=== PATIENT | female | born 1985 | race American Indian/Alaskan Native ===

== ENCOUNTER 2016-06-07 19:19 | Emergency (ER) | payer SELFPAY ==
[2016-06-07] MEDS ORDERED: TYLENOL ONE (19:31)
[2016-06-07] MEDS ORDERED: TYLENOL PO ONE (20:55)
[2016-06-08 00:52] LABS: Hematocrit 30.4 % (30.3-42.9); Hemoglobin 9.2 gm/dl (10.1-14.3); Mean Corpuscular HGB Conc 30 % (30-34); Platelet Count 264 K/mm3 (140-440); Red Blood Count 4.57 M/mm3 (3.65-5.03); White Blood Count 4.9 K/mm3 (4.5-11.0)
[2016-06-08 00:53] LABS: Mean Corpuscular Hemoglobin 20 pg (28-32); Mean Corpuscular Volume 66 fl (79-97); Red Cell Distribution Width 20.7 % (13.2-15.2)
[2016-06-08 01:11] LABS: Anion Gap 17 mmol/L; BUN/Creatinine Ratio 13.33; Blood Urea Nitrogen 12 mg/dL (7-17); Calcium 8.8 mg/dL (8.4-10.2); Carbon Dioxide 26 mmol/L (22-30); Chloride 97.1 mmol/L (98-107); Glucose 114 mg/dL (65-100); Potassium 3.1 mmol/L (3.6-5.0); Sodium 137 mmol/L (137-145)
[2016-06-08] MEDS ORDERED: MOTRIN PO ONE (01:18)
[2016-06-08] MEDS ORDERED: ZITHROMAX PO ONE (01:18)
[2016-06-08] MEDS ORDERED: DUONEB 0.5 MG-3 MG/3 ML SOLN IH ONE (01:19)
[2016-06-08] MEDS ORDERED: K-DUR PO ONE (01:23)
--- NOTE | 2016-06-08 01:23 | Emergency Department Report ---
- General Chief Complaint: Upper Respiratory Infection Stated Complaint: FLU SX/ BODY PAIN Time Seen by Provider: 06/08/16 01:17 Source: patient Mode of arrival: Ambulatory Limitations: No Limitations - History of Present Illness Initial Comments: 30-year-old female has medical history obesity presents with 2-3 days of fevers chills productive cough dark greenish yellow sputum. Patient states she has had muscle cramps and body aches for the last 2 days intermittently. He shouldn 't is awake alert and oriented 3 does not appear to be in severe distress states she feels feverish and has been coughing with productive. MD Complaint: fever, cough Onset/Timin -: days(s) Severity: moderate Context: sick contacts Associated Symptoms: fever, chills, myalgias, cough - Related Data Previous Rx's Medication Instructions Recorded Last Taken Type ALBUTEROL Inhaler [ProAir HFA 1 puff IH Q4H PRN #1 inha 06/08/16 Unknown Rx Inhaler] Azithromycin [Zithromax TAB] 250 mg PO QDAY #4 tablet 06/08/16 Unknown Rx Ibuprofen [Motrin] 600 mg PO Q8H PRN #25 tablet 06/08/16 Unknown Rx Magnesium Oxide [Mag-Ox] 400 mg PO QDAY #15 tablet 06/08/16 Unknown Rx Phenylephrine/Dm/Acetaminop/GG 10 ml PO Q6H PRN #1 bottle 06/08/16 Unknown Rx [Mucinex Xdya-Zci-Qjlaazbmbp Lq] Potassium Chloride [K-Dur] 20 meq PO BID #30 tab 06/08/16 Unknown Rx Allergies Allergy/AdvReac Type Severity Reaction Status Date / Time No Known Allergies Allergy Verified 06/07/16 20:51 ED Review of Systems ROS: Stated complaint: FLU SX/ BODY PAIN Other details as noted in HPI Constitutional: fever, malaise. denies: chills Eyes: denies: eye pain, eye discharge, vision change ENT: denies: ear pain, throat pain Respiratory: cough. denies: shortness of breath, wheezing Cardiovascular: denies: chest pain, palpitations Endocrine: no symptoms reported Gastrointestinal: denies: abdominal pain, nausea, diarrhea Genitourinary: denies: urgency, dysuria, discharge Musculoskeletal: denies: back pain, joint swelling, arthralgia Skin: denies: rash, lesions Neurological: denies: headache, weakness, paresthesias Psychiatric: denies: anxiety, depression Hematological/Lymphatic: denies: easy bleeding, easy bruising ED Past Medical Hx - Past Medical History Previous Medical History?: No - Surgical History Past Surgical History?: No - Social History Smoking Status: Never Smoker Substance Use Type: None - Medications Home Medications: Home Medications Medication Instructions Recorded Confirmed Last Taken Type ALBUTEROL Inhaler [ProAir HFA 1 puff IH Q4H PRN #1 inha 06/08/16 Unknown Rx Inhaler] Azithromycin [Zithromax TAB] 250 mg PO QDAY #4 tablet 06/08/16 Unknown Rx Ibuprofen [Motrin] 600 mg PO Q8H PRN #25 tablet 06/08/16 Unknown Rx Magnesium Oxide [Mag-Ox] 400 mg PO QDAY #15 tablet 06/08/16 Unknown Rx Phenylephrine/Dm/Acetaminop/GG 10 ml PO Q6H PRN #1 bottle 06/08/16 Unknown Rx [Mucinex Rfom-Zph-Ngyaybbzed Lq] Potassium Chloride [K-Dur] 20 meq PO BID #30 tab 06/08/16 Unknown Rx ED Physical Exam - General Limitations: No Limitations General appearance: alert, in no apparent distress - Head Head exam: Present: atraumatic, normocephalic - Eye Eye exam: Present: normal appearance, PERRL, EOMI - ENT ENT exam: Present: mucous membranes moist - Neck Neck exam: Present: normal inspection, full ROM - Respiratory Respiratory exam: Present: respiratory distress, decreased breath sounds - Cardiovascular Cardiovascular Exam: Present: regular rate, normal rhythm. Absent: systolic murmur, diastolic murmur, rubs, gallop - GI/Abdominal GI/Abdominal exam: Present: soft, normal bowel sounds - Extremities Exam Extremities exam: Present: normal inspection, full ROM - Back Exam Back exam: Present: normal inspection - Neurological Exam Neurological exam: Present: alert, oriented X3 - Psychiatric Psychiatric exam: Present: normal affect, normal mood - Skin Skin exam: Present: warm, dry, intact, normal color. Absent: rash ED Course Vital Signs 06/07/16 06/08/16 19:40 00:19 Temperature 101.5 F H 98.8 F Pulse Rate 108 H 75 Respiratory 18 14 Rate Blood Pressure 102/65 Blood Pressure 155/103 [Right] O2 Sat by Pulse 99 100 Oximetry ED Medical Decision Making - Lab Data Result diagrams: 06/08/16 00:38 06/08/16 00:38 - Medical Decision Making A/P: Viral syndrome, hypokalemia, acute bronchitis 1-patient is mildly anemic, states she has had iron deficiency anemia for some time and takes iron supplementation. I will refer her to follow up with primary care doctor. We'll also provide by mouth potassium and magnesium supplementation. Patient is currently on her period which she states is normal in volume and symptoms of blood loss. Patient denies any chest pain or palpitations. Hemoglobin is at 9.4 not low enough for transfusion 2-flu swab negative 3-empiric treatment with azithromycin as patient has productive cough with fever and chills 4-Motrin, Mucinex when necessary albuterol inhaler 5- I advised patient to return to the ED if her symptoms worsen despite use of medications, for any nausea vomiting worsened fever or chills any significant shortness of breath Critical care attestation.: If time is entered above; I have spent that time in minutes in the direct care of this critically ill patient, excluding procedure time. ED Disposition Clinical Impression: Hypokalemia Acute bronchitis Qualifiers: Bronchitis organism: unspecified organism Qualified Code(s): J20.9 - Acute bronchitis, unspecified Disposition: DISCHARGED TO HOME OR SELFCARE Is pt being admited?: No Does the pt Need Aspirin: No Condition: Stable Instructions: Hypokalemia (ED), Acute Bronchitis (ED) Prescriptions: ALBUTEROL Inhaler [ProAir HFA Inhaler] 1 puff IH Q4H PRN #1 inha PRN Reason: Wheezing Azithromycin [Zithromax TAB] 250 mg PO QDAY #4 tablet Ibuprofen [Motrin] 600 mg PO Q8H PRN #25 tablet PRN Reason: Fever Magnesium Oxide [Mag-Ox] 400 mg PO QDAY #15 tablet Phenylephrine/Dm/Acetaminop/GG [Mucinex Lxvn-Nny-Hqxjnkraxb Lq] 10 ml PO Q6H PRN #1 bottle PRN Reason: Cough Potassium Chloride [K-Dur] 20 meq PO BID #30 tab Referrals: NADIA COTA MD [Staff Physician] - 3-5 Days [facility] [Outside] - 3-5 Days [facility] [Outside] - 3-5 Days Forms: Accompanied Note, Work/School Release Form(ED) Time of Disposition: 03:18
[2016-06-08] MEDS ORDERED: MAG-OX PO ONE (01:24)
[2016-06-08 03:03] LABS: Anisocytosis 1+; Basophils % (Manual) 0 % (0.0-1.8); Blastocytes % (Manual) 0 %; Eosinophils % (Manual) 0 % (0.0-4.3); Hypochromasia 2+; Microcytosis 1+
[2016-06-08 03:04] LABS: Diff Status Complete; Platelet Estimate Consistent w Auto
[2016-06-08 03:42] VITALS: BP 104/67
--- NOTE | 2016-06-08 07:46 | XRay Report ---
CHEST 2 VIEWS INDICATION: Worsening cough. COMPARISON: None similar. FINDINGS: PA and lateral chest radiographs demonstrate normal cardiomediastinal silhouette. Clear lungs. Mild thoracic spine degenerative changes, advanced for the patient's age. Small focal eventration of the right hemidiaphragm anteriorly. CONCLUSION: No acute disease in the chest, as described. Thank you for the opportunity to participate in this patient's care.
== END 2016-06-08 03:43 | disposition home or self-care (01) ==
LOC: ED 19:19
DX: J20.9 Acute bronchitis, unspecified (principal); E87.6 Hypokalemia
CPT/HCPCS: 36415; 71020; 80048; 84703; 85007; 85025; 87400; 93005; 93010; 99284

== ENCOUNTER 2019-02-20 | Emergency (ER) | payer SELFPAY ==
[2019-02-20 00:09] VITALS: BP 178/95
[2019-02-20 00:53] LABS: Bilirubin,Urine NEG (Negative); Blood,Urine LG (Negative); Color,Urine Yellow (Yellow); Mucus,Urine FEW /HPF; Protein,Urine <15 mg/dL mg/dL (Negative); Urobilinogen,Urine < 2.0 mg/dL (<2.0); WBC,Urine < 1.0 /HPF (0.0-6.0)
[2019-02-20 00:58] LABS: Basophils % (Auto) 0.3 % (0.0-1.8); Eosinophils # (Auto) 0.1 K/mm3 (0.0-0.4); Eosinophils % (Auto) 1.1 % (0.0-4.3); Hematocrit 27.7 % (30.3-42.9); Hemoglobin 8.6 gm/dl (10.1-14.3); Lymphocytes # (Auto) 3.2 K/mm3 (1.2-5.4); Lymphocytes % (Auto) 33.7 % (13.4-35.0); Mean Corpuscular HGB Conc 31 % (30-34); Monocytes # (Auto) 0.6 K/mm3 (0.0-0.8); Platelet Count 371 K/mm3 (140-440); Red Blood Count 4.46 M/mm3 (3.65-5.03)
[2019-02-20 01:10] LABS: Mean Corpuscular Volume 62 fl (79-97); Red Cell Distribution Width 20.6 % (13.2-15.2)
[2019-02-20 01:20] LABS: Alanine Aminotransferase 9 units/L (7-56); BUN/Creatinine Ratio 16; Blood Urea Nitrogen 11 mg/dL (7-17); Hemolysis Index 0
[2019-02-20] MEDS ORDERED: CYCLOBENZAPRINE 10 MG TAB PO ONE (02:34)
[2019-02-20] MEDS ORDERED: KETOROLAC 30 MG/1 ML INJ IM ONE (02:34)
[2019-02-20] MEDS ORDERED: predniSONE 20 MG TAB PO ONE (02:34)
--- NOTE | 2019-02-20 02:37 | Emergency Department Report ---
ED General Adult HPI - General Chief complaint: Abdominal Pain Stated complaint: ABD PAIN, BLEEDING, LOWER BACK PAIN Time Seen by Provider: 02/20/19 02:36 Source: patient Mode of arrival: Ambulatory Limitations: No Limitations - History of Present Illness Initial comments: This is a 33-year-old female with no prior medical conditions who presents to the ED complaining of right sided back pain for the past 5 days. She describes pain as sharp located eyes to the right lower back, non-radiating anywhere else. Patient states that started her cycle which has been a bit different as far as the bleeding pattern. Patient was a bit worried as she thinks she may be . Denies any injuries ,trauma or falls. She denies all urinary symptoms She denies fevers/chills/nausea vomiting/diarrhea dysuria/abdominal pain - Related Data Home Medications Medication Instructions Recorded Confirmed Last Taken amLODIPine [Norvasc] 5 mg PO DAILY 06/24/18 06/24/18 Unknown Previous Rx's Medication Instructions Recorded Last Taken Type Cyclobenzaprine [Flexeril] 10 mg PO QHS PRN #20 tablet 02/20/19 Unknown Rx Naproxen [Naprosyn] 500 mg PO BID #30 tablet 02/20/19 Unknown Rx Allergies Allergy/AdvReac Type Severity Reaction Status Date / Time No Known Allergies Allergy Verified 06/24/18 12:16 ED Review of Systems ROS: Stated complaint: ABD PAIN, BLEEDING, LOWER BACK PAIN Other details as noted in HPI Comment: All other systems reviewed and negative ED Past Medical Hx - Past Medical History Previous Medical History?: Yes Hx Hypertension: Yes (x 3 yrs) - Surgical History Past Surgical History?: No - Social History Smoking Status: Never Smoker Substance Use Type: None - Medications Home Medications: Home Medications Medication Instructions Recorded Confirmed Last Taken Type amLODIPine [Norvasc] 5 mg PO DAILY 06/24/18 06/24/18 Unknown History Cyclobenzaprine [Flexeril] 10 mg PO QHS PRN #20 tablet 02/20/19 Unknown Rx Naproxen [Naprosyn] 500 mg PO BID #30 tablet 02/20/19 Unknown Rx ED Physical Exam - General Limitations: No Limitations General appearance: alert, in no apparent distress - Head Head exam: Present: atraumatic, normocephalic - Eye Eye exam: Present: normal appearance - ENT ENT exam: Present: mucous membranes moist - Neck Neck exam: Present: normal inspection - Respiratory Respiratory exam: Present: normal lung sounds bilaterally. Absent: respiratory distress - Cardiovascular Cardiovascular Exam: Present: regular rate, normal rhythm. Absent: systolic murmur, diastolic murmur, rubs, gallop - GI/Abdominal GI/Abdominal exam: Present: soft, normal bowel sounds - Extremities Exam Extremities exam: Present: normal inspection - Back Exam Back exam: Present: normal inspection, full ROM, tenderness (palpation of the right latissimus dorsi muscle), muscle spasm (the right lower back). Absent: CVA tenderness (R), CVA tenderness (L) - Neurological Exam Neurological exam: Present: alert, oriented X3 - Psychiatric Psychiatric exam: Present: normal affect, normal mood - Skin Skin exam: Present: warm, dry, intact, normal color. Absent: rash ED Course Vital Signs 02/20/19 00:05 Temperature 98.1 F Pulse Rate 82 Respiratory 14 Rate Blood Pressure 178/95 O2 Sat by Pulse 99 Oximetry ED Medical Decision Making - Lab Data Result diagrams: 02/20/19 00:36 02/20/19 00:36 Laboratory Last Values WBC 9.4 K/mm3 (4.5-11.0) 02/20/19 00:36 RBC 4.46 M/mm3 (3.65-5.03) 02/20/19 00:36 Hgb 8.6 gm/dl (10.1-14.3) L 02/20/19 00:36 Hct 27.7 % (30.3-42.9) L 02/20/19 00:36 MCV 62 fl (79-97) L 02/20/19 00:36 MCH 19 pg (28-32) L 02/20/19 00:36 MCHC 31 % (30-34) 02/20/19 00:36 RDW 20.6 % (13.2-15.2) H 02/20/19 00:36 Plt Count 371 K/mm3 (140-440) 02/20/19 00:36 Lymph % (Auto) 33.7 % (13.4-35.0) 02/20/19 00:36 [place] % (Auto) 6.0 % (0.0-7.3) 02/20/19 00:36 Eos % (Auto) 1.1 % (0.0-4.3) 02/20/19 00:36 Baso % (Auto) 0.3 % (0.0-1.8) 02/20/19 00:36 Lymph # 3.2 K/mm3 (1.2-5.4) 02/20/19 00:36 [place] # 0.6 K/mm3 (0.0-0.8) 02/20/19 00:36 Eos # 0.1 K/mm3 (0.0-0.4) 02/20/19 00:36 Baso # 0.0 K/mm3 (0.0-0.1) 02/20/19 00:36 Seg Neutrophils % 58.9 % (40.0-70.0) 02/20/19 00:36 Seg Neutrophils # 5.5 K/mm3 (1.8-7.7) 02/20/19 00:36 Sodium 138 mmol/L (137-145) 02/20/19 00:36 Potassium 3.6 mmol/L (3.6-5.0) 02/20/19 00:36 Chloride 102.3 mmol/L (98-107) 02/20/19 00:36 Carbon Dioxide 26 mmol/L (22-30) 02/20/19 00:36 Anion Gap 13 mmol/L 02/20/19 00:36 BUN 11 mg/dL (7-17) 02/20/19 00:36 Creatinine 0.7 mg/dL (0.7-1.2) 02/20/19 00:36 Estimated GFR > 60 ml/min 02/20/19 00:36 BUN/Creatinine Ratio 16 % 02/20/19 00:36 Glucose 148 mg/dL (65-100) H 02/20/19 00:36 Calcium 9.0 mg/dL (8.4-10.2) 02/20/19 00:36 Total Bilirubin < 0.20 mg/dL (0.1-1.2) 02/20/19 00:36 AST 13 units/L (5-40) 02/20/19 00:36 ALT 9 units/L (7-56) 02/20/19 00:36 Alkaline Phosphatase 70 units/L (35-129) 02/20/19 00:36 Total Protein 7.5 g/dL (6.3-8.2) 02/20/19 00:36 Albumin 4.0 g/dL (3.9-5) 02/20/19 00:36 Albumin/Globulin Ratio 1.1 % 02/20/19 00:36 HCG, Qual Negative (Negative) 02/20/19 00: Urine Color Yellow (Yellow) 02/20/19:29 Urine Turbidity Clear (Clear) 02/20/19: Urine pH 5.0 (5.0-7.0) 02/20/19: Ur Specific [place] 1.020 (1.003-1.030) 02/20/19 00: Urine Protein <15 mg/dl mg/dL (Negative) 02/20/19: Urine Glucose (UA) Neg mg/dL (Negative) 02/20/19: Urine Ketones Neg mg/dL (Negative) 02/20/19 00: Urine Blood Lg (Negative) 02/20/19 00: Urine Nitrite Neg (Negative) 02/20/19: Urine Bilirubin Neg (Negative) 02/20/19: Urine Urobilinogen < 2.0 mg/dL (<2.0) 02/20/19 00:29 Ur Leukocyte Esterase Neg (Negative) 02/20/19 00: Urine WBC (Auto) < 1.0 /HPF (0.0-6.0) 02/20/19: Urine RBC (Auto) 2.0 /HPF (0.0-6.0) 02/20/19: U Epithel Cells (Auto) 1.0 /HPF (0-13.0) 02/20/19: Urine Mucus Few /HPF 02/20/19 00:29 - Medical Decision Making 33-year-old female presents to ED with myalgia of the lower back ED course: Patient received Toradol and Flexeril in ED. Labs completed in the ED. All labs within normal limits, urinalysis is negative Discussed all findings with the patient. Vital signs are normal patient is in no acute distress Discussed with patient follow-up with primary care physician. Discussed the patient and take medications as prescribed. Discussed the patient is symptoms worsen to return to ED immediately Patient has no neurological deficit. Patient is alert and oriented 3 and und erstands all instructions given. Discussed drowsiness effect of Flexeril makes her drowsy and not to operate machinery while taking flexeril Critical care attestation.: If time is entered above; I have spent that time in minutes in the direct care of this critically ill patient, excluding procedure time. ED Disposition Clinical Impression: Spasm of muscle of lower back, Menstrual changes Disposition: TO HOME OR SELFCARE Is pt being admited?: No Does the pt Need Aspirin: No Condition: Stable Instructions: Muscle Spasm (ED) Additional Instructions: Make sure to follow up with the primary care physician as discussed. Take all your medications as you've been prescribed. If you have any worsening symptoms or develop new symptoms please return to ED immediately. Prescriptions: Cyclobenzaprine [Flexeril] 10 mg PO QHS PRN #20 tablet PRN Reason: Muscle Spasm Naproxen [Naprosyn] 500 mg PO BID #30 tablet Referrals: PRIMARY CARE, [Primary Care Provider] - 3-5 Days [facility] [Provider Group] - 3-5 Days [facility] [Provider Group] - 3-5 Days [facility] [Provider Group] - 3-5 Days Forms: Accompanied Note, Work/School Release Form(ED) Time of Disposition: 03:04
== END 2019-02-20 03:10 | disposition home or self-care (01) ==
LOC: ED
DX: M62.830 Muscle spasm of back (principal); N92.6 Irregular menstruation, unspecified; I10 Essential (primary) hypertension; Z79.899 Other long term (current) drug therapy
CPT/HCPCS: 36415; 80053; 81001; 84703; 85025; 96372; 99283; J1885; J7512

== ENCOUNTER 2020-06-09 06:15 | Emergency (ER) | payer SELFPAY ==
[2020-06-09] MEDS ORDERED: ONDANSETRON 4 MG/2 ML INJ IV ONE (08:23)
[2020-06-09] MEDS ORDERED: SODIUM CHLORIDE 0.9% 1000 ML 1,000 ML IV ONE (08:23)
--- NOTE | 2020-06-09 08:28 | Emergency Department Report ---
ED General Adult HPI - General Chief complaint: Abdominal Pain Stated complaint: right flank pain PUI?: No Time Seen by Provider: 06/09/20 08:22 - History of Present Illness Initial comments: This very pleasant 34-year-old female with past medical history of hypertension who presents to the emergency department with a chief complaint of right-sided flank pain over the past week. She reports it is increasing in pain aggravated with any movement specifically getting up from a sitting or lying position. She reports the pain is dull and throbbing and rates it as an 8 out of 10 in severity. She denies any injuries. She does report she has had a change in the color and smell of her urine but denies dysuria frequency urgency. She reports her current medications include labetalol and she denies any known allergies to medications. She denies any associated fever, chills, night sweats, headache, dizziness, blurry vision, nausea, vomiting, diarrhea, chest pain, shortness of breath, weakness or any other associated symptoms. - Related Data Home Medications Medication Instructions Recorded Confirmed Last Taken amLODIPine [Norvasc] 5 mg PO DAILY 06/24/18 06/24/18 Unknown Previous Rx's Medication Instructions Recorded Last Taken Type Cyclobenzaprine [Flexeril] 10 mg PO QHS PRN #20 tablet 02/20/19 Unknown Rx Naproxen [Naprosyn] 500 mg PO BID #30 tablet 02/20/19 Unknown Rx medroxyPROGESTERone ACETATE 10 mg PO QDAY #7 tablet 03/17/19 Unknown Rx [Provera] Naproxen 500 mg PO BID #20 tablet 06/09/20 Unknown Rx methOCARBAMOL [Robaxin TAB] 500 mg PO Q6H #30 tablet 06/09/20 Unknown Rx methylPREDNISolone [Medrol 4MG 4 mg PO ONCE #1 tab.ds.pk 06/09/20 Unknown Rx DOSEPAK (21 tabs)] Allergies Allergy/AdvReac Type Severity Reaction Status Date / Time No Known Allergies Allergy Verified 06/24/18 12:16 ED Review of Systems ROS: Stated complaint: Other details as noted in HPI Comment: All other systems reviewed and negative Constitutional: denies: chills, fever Eyes: denies: eye pain, eye discharge, vision change ENT: denies: ear pain, throat pain Respiratory: denies: cough, shortness of breath, wheezing Cardiovascular: denies: chest pain, palpitations Endocrine: no symptoms reported Gastrointestinal: denies: abdominal pain, nausea, diarrhea Genitourinary: as per HPI. denies: urgency, dysuria, discharge Musculoskeletal: as per HPI, back pain. denies: joint swelling, arthralgia Skin: denies: rash, lesions Neurological: denies: headache, weakness, paresthesias Psychiatric: denies: anxiety, depression Hematological/Lymphatic: denies: easy bleeding, easy bruising ED Past Medical Hx - Past Medical History Hx Hypertension: Yes (x 3 yrs) Additional medical history: Anemia - Social History Smoking Status: Never Smoker Substance Use Type: None - Medications Home Medications: Home Medications Medication Instructions Recorded Confirmed Last Taken Type amLODIPine [Norvasc] 5 mg PO DAILY 06/24/18 06/24/18 Unknown History Cyclobenzaprine [Flexeril] 10 mg PO QHS PRN #20 tablet 02/20/19 Unknown Rx Naproxen [Naprosyn] 500 mg PO BID #30 tablet 02/20/19 Unknown Rx medroxyPROGESTERone ACETATE 10 mg PO QDAY #7 tablet 03/17/19 Unknown Rx [Provera] Naproxen 500 mg PO BID #20 tablet 06/09/20 Unknown Rx methOCARBAMOL [Robaxin TAB] 500 mg PO Q6H #30 tablet 06/09/20 Unknown Rx methylPREDNISolone [Medrol 4MG 4 mg PO ONCE #1 tab.ds.pk 06/09/20 Unknown Rx DOSEPAK (21 tabs)] ED Physical Exam - General General appearance: alert, in no apparent distress - Head Head exam: Present: atraumatic, normocephalic - Eye Eye exam: Present: normal appearance, PERRL, EOMI Pupils: Present: normal accommodation - ENT ENT exam: Present: normal exam, normal orophraynx, mucous membranes moist - Neck Neck exam: Present: normal inspection, full ROM. Absent: tenderness, meningismus - Respiratory Respiratory exam: Present: normal lung sounds bilaterally. Absent: respiratory distress, wheezes, rales, rhonchi, stridor - Cardiovascular Cardiovascular Exam: Present: regular rate, normal rhythm, normal heart sounds. Absent: systolic murmur, diastolic murmur, rubs, gallop - GI/Abdominal GI/Abdominal exam: Present: soft, normal bowel sounds. Absent: distended, tenderness, guarding, rebound, rigid - Extremities Exam Extremities exam: Present: normal inspection, full ROM, normal capillary refill. Absent: tenderness - Back Exam Back exam: Present: normal inspection, full ROM, muscle spasm, paraspinal tenderness (TTP to right flank area ). Absent: tenderness, CVA tenderness (R), CVA tenderness (L) - Neurological Exam Neurological exam: Present: alert, oriented X3, normal gait - Psychiatric Psychiatric exam: Present: normal affect, normal mood - Skin Skin exam: Present: warm, dry, intact, normal color. Absent: rash ED Course Vital Signs 06/09/20 06:55 Temperature 98.1 F Pulse Rate 80 Respiratory 18 Rate Blood Pressure 150/72 O2 Sat by Pulse 97 Oximetry ED Medical Decision Making - Lab Data Result diagrams: 06/09/20 09:02 06/09/20 09:02 Lab Results 06/09/20 06/09/20 06/09/20 Range/Units 09:02 09:02 09:21 WBC 7.9 (4.5-11.0) K/mm3 RBC 4.30 (3.65-5.03) M/mm3 Hgb 7.9 L (10.1-14.3) gm/dl Hct 25.3 L (30.3-42.9) % MCV 59 L (79-97) fl MCH 18 L (28-32) pg MCHC 31 (30-34) % RDW 21.2 H (13.2-15.2) % Plt Count 330 (140-440) K/mm3 Lymph % (Auto) 29.4 (13.4-35.0) % [place] % (Auto) 5.5 (0.0-7.3) % Eos % (Auto) 0.6 (0.0-4.3) % Baso % (Auto) 0.3 (0.0-1.8) % Lymph # (Auto) 2.3 (1.2-5.4) K/mm3 [place] # (Auto) 0.4 (0.0-0.8) K/mm3 Eos # (Auto) 0.0 (0.0-0.4) K/mm3 Baso # (Auto) 0.0 (0.0-0.1) K/mm3 Seg Neutrophils % 64.2 (40.0-70.0) % Seg Neutrophils # 5.1 (1.8-7.7) K/mm3 Sodium 136 L (137-145) mmol/L Potassium 3.6 (3.6-5.0) mmol/L Chloride 100.9 (98-107) mmol/L Carbon Dioxide 28 (22-30) mmol/L Anion Gap 11 mmol/L BUN 8 (7-17) mg/dL Creatinine 0.6 (0.6-1.2) mg/dL Estimated GFR > 60 ml/min BUN/Creatinine Ratio 13 % Glucose 113 H (65-100) mg/dL Calcium 9.0 (8.4-10.2) mg/dL Total Bilirubin 0.20 (0.1-1.2) mg/dL AST 11 (5-40) units/L ALT 8 (7-56) units/L Alkaline Phosphatase 62 (35-129) units/L Total Protein 7.1 (6.3-8.2) g/dL Albumin 3.8 L (3.9-5) g/dL Albumin/Globulin Ratio 1.2 % Urine Color Yellow (Yellow) Urine Turbidity Slightly-cloudy (Clear) Urine pH 5.0 (5.0-7.0) Ur Specific [place] 1.020 (1.003-1.030) Urine Protein <15 mg/dl (Negative) mg/dL Urine Glucose (UA) Neg (Negative) mg/dL Urine Ketones Neg (Negative) mg/dL Urine Blood Neg (Negative) Urine Nitrite Neg (Negative) Urine Bilirubin Neg (Negative) Urine Urobilinogen < 2.0 (<2.0) mg/dL Ur Leukocyte Esterase Neg (Negative) Urine WBC (Auto) 1.0 (0.0-6.0) /HPF Urine RBC (Auto) 2.0 (0.0-6.0) /HPF U Epithel Cells (Auto) 9.0 (0-13.0) /HPF Urine Mucus Few /HPF Urine HCG, Qual Negative (Negative) - Medical Decision Making Patient nontoxic in no acute distress. Vital signs are stable. She is initially hypertensive when she got here but took her blood pressure medication and this resolved. She had tenderness to palpation of the right flank but no CVA tenderness. Urine shows no pyuria or hematuria making pyelonephritis or nephrolithiasis less likely. She had no saddle anesthesia or urinary or bowel incontinence with no urinary retention making cauda equina syndrome unlikely. She had a negative straight leg raise making an HNP unlikely. Her pain was in the paraspinal area of the lumbar area of her back. Labs returned consistent with a chronic iron deficiency anemia which based on her previous lab results this is chronic. She had no history of fall or injury making spinal epidural hematoma unlikely. She is also not on any blood thinners. She also had no history of IV drug use, fever making spinal epidural abscess unlikely. No history of cancer making bony metastatic cancer unlikely.. She is given Toradol and felt much better. I will discharge her with a short course of steroids, pain medication and anti-inflammatories recommend outpatient follow-up with orthopedics and return to the ER with any change or worsening symptoms. She verbalized understand the diagnosis, treatment plan and follow-up instructions and all of her questions were answered. - Differential Diagnosis Strain, sprain, nephrolithiasis, pyelonephritis Critical care attestation.: If time is entered above; I have spent that time in minutes in the direct care of this critically ill patient, excluding procedure time. ED Disposition Clinical Impression: Right flank pain Disposition: [id number]-01 TO HOME OR SELFCARE Is pt being admited?: No Condition: Stable Instructions: Abdominal Pain (ED), Flank Pain, Adult, [id number] Prescriptions: methylPREDNISolone [Medrol 4MG DOSEPAK (21 tabs)] 4 mg PO ONCE #1 tab.ds.pk Naproxen 500 mg PO BID #20 tablet methOCARBAMOL [Robaxin TAB] 500 mg PO Q6H #30 tablet Referrals: PRIMARY MD RAMA [Primary Care Provider] - 3-5 Days SAGAR REYNA MD [Staff Physician] - 3-5 Days KHARI DELVALLE MD [Staff Physician] - 3-5 Days [facility] [Provider Group] - 3-5 Days
[2020-06-09 09:24] LABS: Basophils % (Auto) 0.3 % (0.0-1.8); Eosinophils % (Auto) 0.6 % (0.0-4.3); Hematocrit 25.3 % (30.3-42.9); Hemoglobin 7.9 gm/dl (10.1-14.3); Lymphocytes # (Auto) 2.3 K/mm3 (1.2-5.4); Lymphocytes % (Auto) 29.4 % (13.4-35.0); Mean Corpuscular HGB Conc 31 % (30-34); Monocytes # (Auto) 0.4 K/mm3 (0.0-0.8); Monocytes % (Auto) 5.5 % (0.0-7.3); Platelet Count 330 K/mm3 (140-440)
[2020-06-09 09:34] LABS: Bilirubin,Urine NEG (Negative); Blood,Urine NEG (Negative); Color,Urine Yellow (Yellow); Mucus,Urine FEW /HPF; Protein,Urine <15 mg/dL mg/dL (Negative); Urobilinogen,Urine < 2.0 mg/dL (<2.0)
[2020-06-09 09:35] LABS: Mean Corpuscular Volume 59 fl (79-97); Red Cell Distribution Width 21.2 % (13.2-15.2)
[2020-06-09 09:40] LABS: HCG Qualitative,Urine Negative (Negative)
[2020-06-09] MEDS ORDERED: KETOROLAC 30 MG/1 ML INJ IV ONE (09:44)
[2020-06-09] MEDS ORDERED: KETOROLAC 30 MG/1 ML INJ ONE (10:02)
[2020-06-09 10:04] LABS: Alanine Aminotransferase 8 units/L (7-56); Albumin 3.8 g/dL (3.9-5); Blood Urea Nitrogen 8 mg/dL (7-17); Hemolysis Index 0
[2020-06-09 10:05] LABS: BUN/Creatinine Ratio 13
[2020-06-09 16:19] VITALS: BP 142/70
== END 2020-06-09 11:30 | disposition home or self-care (01) ==
LOC: ED 07:54
DX: R10.9 Unspecified abdominal pain (principal); I10 Essential (primary) hypertension; Z79.899 Other long term (current) drug therapy
CPT/HCPCS: 36415; 80053; 81001; 81025; 85025; 96361; 96374; 96375; 99283; J1885; J2405; J7030